=== PATIENT | male | born 1990 | race Caucasian/White ===

== ENCOUNTER 2018-06-13 23:43 | Emergency (ER) | payer BC ==
[~2018-06-13] VITALS: Ht 165.1 cm; Wt 64.1 kg
[2018-06-13 23:59] VITALS: BP 138/79; Ht 165.1 cm; Wt 64.1 kg
== END 2018-06-14 00:49 | disposition home or self-care (01) ==
LOC: ED 23:43
DX: R21 Rash and other nonspecific skin eruption (principal); T78.40XA Allergy, unspecified, initial encounter; X58.XXXA Exposure to other specified factors, initial encounter
CPT/HCPCS: J7512